=== PATIENT | female | born 1995 | race Caucasian/White ===

== ENCOUNTER 2024-04-25 14:57 | Emergency (ER) | payer OTHER, SELFPAY ==
--- OUTSIDE RECORDS SUMMARY | 2024-04-25 15:00 | XMS REPORT | Continuity of Care Document ---
Author Name Unknown Address [address] [place] [address] [facility] Address 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 Role Phone Tiffany Veliz Primary Care Physician [phone] SARA GILLETTE Attending Clinician Unavailable Allergies, Adverse Reactions, Alerts Allergy Name Allergy Type Status Severity Reaction(s) Onset Date Inactive Date Treating Clinician Comments Source MORPHINE DRUG INGREDI Active Hallucinates 01-25 00:00: 00 [facility] PENICILL INS Drug Class Active Swelling 01-25 00:00: 00 [facility] penicill in G Propensi ty to adverse reaction to drug Active 09-15 00:00: 00 Juan Antonio Hernando Davila NO KNOWN ALLERGIE S Drug Class Active [facility] Medications Ordered Medication Name Filled Medication Name Start Date Stop Date Current Medication? Ordering Clinician Indication Dosage Frequency Signature (SIG) Comments Components Source ciprofloxac in 0.3 %-dexametha sone 0.1 % ear drops,suspe nsion 2023-07 00:00: 00 Yes 4% Juan Antonio Hernando Davila ondansetron 4 mg disintegrat ing tablet 09-15 00:00: 00 Yes 1mg Juan Antonio Hernando Davila omeprazole 20 mg capsule,del ayed release 09-15 00:00: 00 Yes 1mg Juan Antonio Villagomez Giovanni Vital Signs Vital Name Observation Time Observation Value Comments S darcei BP Systolic 2024-04-14 16:31:00 113 mm[Hg] Faustino Davila BP Diastolic 2024-04-14 16:31:00 71 mm[Hg] You phen Hernando Davila Weight Measured 2024-04-14 16:31:00 177.60 pounds Juan Antonio Davila Height Measured 2024-04-14 16:31:00 66.00 inches Juan Antonio Davila Body Temperature 2024-04-14 16:31:00 98.20 degrees Juan Antonio Davila Heart Rate 2024-04-14 16:31:00 83.00 /min Renetta en Hernando Davila Respiratory Rate 2024-04-14 16:31:00 18.00 /min Juan Antonio Davila Body Temperature 2023-09-16 13:57:00 98.20 degrees Juan Antonio Davila Heart Rate 2023-09-16 13:57:00 93.00 /min Renetta en Hernando Davila Respiratory Rate 2023-09-16 13:57:00 18.00 /min Juan Antonio Davila BP Systolic 2023-09-16 13:57:00 121 mm[Hg] Faustino Davila BP Diastolic 2023-09-16 13:57:00 84 mm[Hg] You phen Hernando Davila Weight Measured 2023-09-16 13:57:00 176.00 pounds Juan Antonio Davila Height Measured 2023-09-16 13:57:00 66.00 inches Juan Antonio Davila Encounters Start Date/Time End Date/Time Encounter Type Admission Type Attending [facility] Care Department Encounter ID Source 2024-04-14 00:00:00 2024-04-14 00:00:00 Outpatient Visit [facility] [id number] Juan Antonio Davila 2024-04-04 13:35:52 2024-04-04 13:35:52 Outpatient [facility] [id number] Juan Antonio Davila 2024-04-04 00:00:00 2024-04-04 00:00:00 Outpatient Visit [facility] [id number] Juan Antonio Davila 2024-01-26 10:40:00 2024-01-26 11:25:44 Outpatient SARA CABRAL [facility] [id number] [facility] 2023-09-16 13:50:08 2023-09-16 13:50:08 Outpatient [facility] [id number] Juan Antonio Davila Notes Date/Time Note Provider Source Juan Antonio Benoit [facility]2024-09-30 00:00:00 Juan Antonio Benoit [facility]
--- NOTE | 2024-04-25 16:52 | ER ---
Nurse's Notes [facility] Name: Haydee Santillan Age: 28 yrs Sex: Female : 1995 Arrival Date: 04/25/2024 Time: 14:57 Bed 14 Private MD: Diagnosis: Acute serous otitis media, recurrent, right ear;Other otitis externa, right ear Presentation: 04/25 15:37 Chief complaint: Patient states: R ear pain for 1 day. No fever. Coronavirus screen: ll1 Client denies travel out of the [place] in the last 14 days. At this time, the client does not indicate any symptoms associated with coronavirus-19. Ebola Screen: Patient denies travel to an Ebola-affected area in the 21 days before illness onset. Initial Sepsis Screen: Does the patient meet any 2 criteria? No. Patient's initial sepsis screen is negative. Does the patient have a suspected source of infection? No. Patient's initial sepsis screen is negative. Risk Assessment: Do you want to hurt yourself or someone else? Patient reports no desire to harm self or others. Onset of symptoms was April 25, 2024. 15:37 Method Of Arrival: Ambulatory ll1 15:37 Acuity: DELMA 4 ll1 Triage Assessment: 15:36 General: Appears uncomfortable, Behavior is calm, cooperative, appropriate for age. ll1 Pain: Complains of pain in right ear Quality of pain is described as aching. EENT: Reports pain in right ear. 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 - Infectious Disease History:: Denies. - Social history:: Smoking status: Reported history of juuling and/or vaping. Patient denies any tobacco usage or history of. Screenin:05 [facility] ED Fall Risk Assessment (Adult) History of falling in the last 3 months, cm10 including since admission No falls in past 3 months (0 pts) Confusion or Disorientation No (0 pts) Intoxicated or Sedated No (0 pts) Impaired Gait No (0 pts) Mobility Assist Device Used No (0 pt) Altered Elimination No (0 pt) Score/Fall Risk Level 0 - 2 = Low Risk Oriented to surroundings, Maintained a safe environment, Hourly rounding (assess needs \T\ fall precautionary measures) done. Abuse screen: Denies threats or abuse. Denies injuries from another. Nutritional screening: No deficits noted. Tuberculosis screening: No symptoms or risk factors identified. Vital Signs: 15:37 BP 137 / 89; Pulse 84; Resp 17; Temp 97.3; Pulse Ox 100% ; Weight 80.29 kg; Height 5 ll1 ft. 7 in. ; Pain 9/10; 15:37 Body Mass Index 27.72 (80.29 kg, 170.18 cm) ll1 15:37 Pain Scale: Adult ll1 ED Course: 15:00 Patient arrived in ED. ra3 15:04 Jeannette Bowens PA-C is PHCP. sb4 15:04 Emerson Williamson MD is Attending Physician. sb4 15:33 Arm band placed on. ll1 15:38 Triage completed. ll1 16:51 Caterina Chavez, JACKIE is Primary Nurse. cm10 16:51 Angela Ragsdale MD is Referral Physician. sb4 17:06 Patient has correct armband on for positive identification. Provided Education on: cm10 Follow-up instructions. Cardiac monitoring not applicable on this patient. 17:06 No provider procedures requiring assistance completed. Patient did not have IV access cm10 during this emergency room visit. Administered Medications: 17:06 Drug: Doxycycline PO 100 mg PO once Route: PO; cm10 17:07 Follow up: Response: Medication administered at discharge. cm10 17:07 Drug: Hydrocodone-Acetaminophen PO (7.5 mg-325 mg) 1 tabs PO once Route: PO; cm10 17:07 Follow up: Response: Medication administered at discharge. cm10 Medication: 17:05 VIS not applicable for this client. cm10 Outcome: 16:51 Discharge ordered by . sb4 17:06 Discharged to home ambulatory, with family, cm10 17:06 Condition: good 17:06 Discharge instructions given to patient, Instructed on discharge instructions, follow up and referral plans. medication usage, Demonstrated understanding of instructions, follow-up care, medications, Prescriptions given X 1, 17:07 Patient left the ED. cm10 Signatures: Rodrick Reid RN RN ll1 Jeannette Bowens COLEMAN PAParker sb4 Caterina Chavez, RN RN cm10 Corina Aleman ra3
--- NOTE | 2024-04-25 16:52 | EDPHYS ---
Physician Documentation [facility] Name: Haydee Santillan Age: 28 yrs Sex: Female : 1995 Arrival Date: 04/25/2024 Time: 14:57 Bed 14 Private MD: ED Physician Emerson Williamson HPI: 04/25 19:14 This 28 yrs old Female presents to ER via Ambulatory with complaints of Ear Pain. sb4 19:14 The patient presents with pain, that is acute. The complaints affect the right ear. sb4 Onset: The symptoms/episode began/occurred 2 week(s) ago. 19:14 ear pain x 2 weeks. was seen by PCP, prescribed ear drops, unsure what they were. sb4 states the pain got better while taking the drops but came back as soon as she finished them. denies any fever or other symptmos. 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 - Infectious Disease History:: Denies. - Social history:: Smoking status: Reported history of juuling and/or vaping. Patient denies any tobacco usage or history of. ROS: 19:14 Constitutional: Negative for fever, chills, and weight loss, sb4 19:14 ENT: Positive for ear pain, 19:14 All other systems are negative, Exam: 19:14 Head/Face: Normocephalic, atraumatic. Eyes: Extra-ocular motions intact. Periorbital sb4 areas with no swelling, redness, or edema. Skin: Warm, dry with normal turgor. Normal color with no rashes, no lesions, and no evidence of cellulitis. 19:14 Constitutional: The patient appears alert, awake, uncomfortable, 19:14 ENT: Ear canal(s): erythema, that is moderate, of the right canal, TM's: erythema, on the right, fluid levels, Examination of the other ear shows no obvious abnormality, Vital Signs: 15:37 BP 137 / 89; Pulse 84; Resp 17; Temp 97.3; Pulse Ox 100% ; Weight 80.29 kg; Height 5 ll1 ft. 7 in. ; Pain 9/10; 15:37 Body Mass Index 27.72 (80.29 kg, 170.18 cm) ll1 15:37 Pain Scale: Adult ll1 MDM: 15:09 Medical Screening Exam initiated sb4 19:16 Data reviewed: vital signs, nurses notes, and as a result, I will discharge patient. sb4 Counseling: I had a detailed discussion with the patient and/or guardian regarding the historical points, exam findings, and any diagnostic results supporting the discharge/admit diagnosis, the need for outpatient follow up, an ENT specialist, to return to the emergency department if symptoms worsen or persist or if there are any questions or concerns that arise at home. Administered Medications: 17:06 Drug: Doxycycline PO 100 mg PO once Route: PO; cm10 17:07 Follow up: Response: Medication administered at discharge. cm10 17:07 Drug: Hydrocodone-Acetaminophen PO (7.5 mg-325 mg) 1 tabs PO once Route: PO; cm10 17:07 Follow up: Response: Medication administered at discharge. cm10 Disposition: 17:38 Co-signature as Attending Physician, Emerson Williamson MD I reviewed the patient's care rt provided by the Advanced Practice Provider and agree with the diagnosis and treatment plan. Disposition Summary: 04/25/24 16:51 Discharge Ordered Notes: Location: Home sb4 Problem: new sb4 Symptoms: are unchanged sb4 Condition: Stable sb4 Diagnosis - Acute serous otitis media, recurrent, right ear sb4 - Other otitis externa, right ear sb4 Followup: sb4 - With: Angela Ragsdale MD - When: As needed - Reason: Recheck today's complaints, Re-evaluation by your physician Discharge Instructions: - Discharge Summary Sheet sb4 - Otitis Media, Adult sb4 - Otitis Externa, [id number] sb4 Forms: - Antibiotic Education sb4 - Patient Portal Instructions sb4 - Leadership Thank You Letter sb4 Prescriptions: - Doxycycline Hyclate 100 mg Oral tablet - take 1 tablet ORAL route every 12 hours; 14 tablet; Refills: 0, Product sb4 Selection Permitted Signatures: Rodrick Reid RN RN ll1 Jeannette Bowens PA-C PA-C sb4 Emerson Williamson MD MD rt Caterina Chavez RN RN cm10
[2024-04-25] MEDS ORDERED: DOXYCYCLINE 100 MG CAP PO ONE (17:01)
[2024-04-25] MEDS ORDERED: HYDROCODONE/APAP 7.5/325 MG TAB ONE (17:01)
[2024-04-25 21:11] VITALS: BP 137/89; TEMP 97.3; O2SAT 100
== END 2024-04-25 17:07 | disposition home or self-care (01) ==
LOC: ER 14:57
DX: H65.04 Acute serous otitis media, recurrent, right ear (principal); H60.8X1 Other otitis externa, right ear
CPT/HCPCS: 99283